=== PATIENT | male | born 1970 | race Caucasian/White ===

== ENCOUNTER 2016-12-06 11:31 | Emergency (ER) | payer SELFPAY ==
[~2016-12-06] VITALS: Ht 177.8 cm; Wt 71.2 kg
[~2016-12-06 11:31] MED LIST: ERYT1O LEFT EYE; ZITH250T PO
[2016-12-06 11:40] VITALS: BP 127/77; PULSE 70; RESP 18; TEMP 99.4; O2SAT 98
--- NOTE | 2016-12-06 12:41 | PD ---
HPI Chief Complaint: Cold / Flu Symptoms Time Seen by Provider: 12:18 Travel History International Travel<30 days: No Contact w/Intl Traveler<30days: No Traveled to known affect area: No History of Present Illness HPI 46-year-old male percents emergency Department with multiple chief complaints. Patient reports over the last several days he's had nasal congestion, fatigue, headache, red right eye, nausea without vomiting. 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 He denies fever or chills, chest pain, shortness of breath, abdominal pain, nausea vomiting diarrhea, or changes in bowel habits. He reports he has had a "weight loss" over the last year but is unable to quantify the amount. He confirms less than 10 pounds. Patient appears well-nourished. He denies any foreign travel. [facility] Past Medical History Medical History: Denies Significant Hx Influenza Vaccination: No Past Surgical History Surgical History: No Previous Surgery Social History Alcohol Use: No Tobacco Use: Yes (1/2 PPD) Substance Use: No Allergies-Medications (Allergen,Severity, Reaction): Coded Allergies: No Known Allergies (Unverified , 12/06/16) Reported Meds & Prescriptions Reported Meds & Active Scripts Active No Active Prescriptions or Reported Medications Review of Systems Except as stated in HPI: all other systems reviewed are Neg General / Constitutional: No: Fever Eyes: Positive: Redness HENT: No: Headaches Cardiovascular: No: Chest Pain or Discomfort Respiratory: No: Shortness of Breath Gastrointestinal: Positive: Nausea Genitourinary: No: Dysuria Musculoskeletal: No: Pain Skin: No Rash Neurologic: No: Weakness Physical Exam Narrative GENERAL: Alert, well-nourished well-appearing male in no acute distress SKIN: Focused skin assessment warm/dry. HEAD: Atraumatic. Normocephalic. EYES: Pupils equal and round. No scleral icterus. No drainage. Right eye injected. EOMs intact ENT: No nasal bleeding or discharge. Mucous membranes pink and moist. NECK: Trachea midline. No JVD. No meningismus CARDIOVASCULAR: Regular rate and rhythm. No murmur appreciated. RESPIRATORY: No accessory muscle use. Clear to auscultation. Breath sounds equal bilaterally. GASTROINTESTINAL: Abdomen soft, non-tender, nondistended. Hepatic and splenic margins not palpable. MUSCULOSKELETAL: No obvious deformities. No clubbing. No cyanosis. No edema. NEUROLOGICAL: Awake and alert. No obvious cranial nerve deficits. Motor grossly within normal limits. Normal speech. PSYCHIATRIC: Appropriate mood and affect; insight and judgment normal. Data Data Last Documented VS Vital Signs Date Time Temp Pulse Resp B/P Pulse Ox O2 Delivery O2 Flow Rate FiO2 12/06/16 11:40 99.4 70 18 127/77 98 Orders Erythromycin 0.5% Opth Oint (Ilotycin 0. (12/06/16 12:45) [facility] Medical Decision Making Medical Screen Exam Complete: Yes Emergency Medical Condition: Yes Differential Diagnosis Viral syndrome, bacterial conjunctivitis, viral conjunctivitis Narrative Course 46-year-old male with multiple chief complaints of varying duration. His physical exam is reassuring. He appears well-nourished and well-hydrated. His lung sounds are clear. His abdomen is soft and nontender. He denies fever or chills. He denies changes in bowel or bladder. Patient does have conjunctivitis of the right eye. Patient will be referred to the [facility] to establish with a PCP. Diagnosis Primary Impression: Viral syndrome Additional Impression: Conjunctivitis Qualified Code: H10.31 - Acute conjunctivitis of right eye, unspecified acute conjunctivitis type Referrals: [facility] Additional Instructions: Make an appointment with the [facility]. Use the antibiotic ointment as directed. Stay well hydrated. Return to the emergency department if he developed new or worsening symptoms. Scripts No Active Prescriptions or Reported Meds Disposition: 01 DISCHARGE HOME Condition: Stable Tenisha Perdomo Dec 06, 2016 12:41
[2016-12-06] MEDS ORDERED: ONDANSETRON ODT 4 MG TAB PO ONE (12:45)
[2016-12-06] MEDS ORDERED: ERYTHROMYCIN 0.5% OPTH OINT 3.5 GM TUBO RIGHT EYE ONE (12:45)
== END 2016-12-06 12:53 | disposition home or self-care (01) ==
LOC: PHEFT 11:31
DX: B34.9 Viral infection, unspecified (principal); H10.31 Unspecified acute conjunctivitis, right eye; F17.200 Nicotine dependence, unspecified, uncomplicated
CPT/HCPCS: 99283